=== PATIENT | male | born 1985 | race Hispanic/Latino ===

== ENCOUNTER 2017-01-14 21:45 | Emergency (ER) | payer BC ==
[2017-01-14 21:59] VITALS: BP 131/82; PULSE 65; RESP 16; TEMP 98.5; O2SAT 100
[2017-01-14 23:33] LABS: BARBITURATES, UR NEGATIVE (NEGATIVE); BENZODIAZEPINES, UR NEGATIVE (NEGATIVE); OPIATES, UR NEGATIVE (NEGATIVE); PHENCYCLIDINE, UR NEGATIVE (NEGATIVE)
--- NOTE | 2017-01-14 23:39 | ED PDOC ---
HPI: Back Time Seen by Provider: 01/14/17 22:11 Chief Complaint (Nursing): Chest Pain Chief Complaint (Provider): LEFT sided back pain History Per: Patient History/Exam Limitations: no limitations Current Symptoms Are (Timing): Still Present Quality Of Discomfort: Aching Additional Complaint(s): LEFT upper back pain for 2 years radiating to entire LEFT side of body (neck/ head/arm/chest/leg) Worsened over the last month, and especially severe today Took motrin with no relief Seen by PMD and outpatient workup so far: bloodwork", ekg, "nerve testing" in office which demonstrated LEFT arm weakness. He has MRI scheduled January 23 of T- spine. Intermittent numbness to LEFT hand RIGHT hand dominant No trauma Work requires extensive manual labor. Past Medical History Reviewed: Historical Data, Nursing Documentation, Vital Signs Vital Signs: Last Vital Signs Temp 98.5 F 01/14/17 21:55 Pulse 65 01/14/17 21:55 Resp 16 01/14/17 21:55 BP 131/82 01/14/17 21:55 Pulse Ox 100 01/14/17 21:55 - Medical History PMH: No Chronic Diseases - Surgical History Surgical History: No Surg Hx - Family History Family History: States: No Known Family Hx - Social History Current smoker - smoking cessation education provided: No Alcohol: Social (weekends) Drugs: Denies - Home Medications Home Medications: Ambulatory Orders Medication Instructions Recorded Cyclobenzaprine [Flexeril] 5 mg PO Q8 PRN #15 tab 01/14/17 Ibuprofen [Motrin Tab] 600 mg PO Q8 PRN #60 tab 01/14/17 traMADol [Ultram] 50 mg PO TID PRN #10 tab 01/14/17 - Allergies Allergies/Adverse Reactions: Allergies Allergy/AdvReac Type Severity Reaction Status Date / Time No Known Allergies Allergy Verified 01/14/17 21:55 Review of Systems ROS Statement: Except As Marked, All Systems Reviewed And Found Negative Cardiovascular: Positive for: Chest Pain Musculoskeletal: Positive for: Neck Pain, Shoulder Pain, Arm Pain, Back Pain, Hand Pain, Leg Pain Neurological: Positive for: Numbness, Headache. Negative for: Weakness Physical Exam - Reviewed Nursing Documentation Reviewed: Yes Vital Signs Reviewed: Yes - Physical Exam Appears: Positive for: Non-toxic, In Acute Distress Head Exam: Positive for: ATRAUMATIC, NORMOCEPHALIC Skin: Positive for: Warm, Dry Eye Exam: Positive for: EOMI, PERRL ENT: Negative for: Pharyngeal Erythema, Tonsillar Exudate Neck: Positive for: Painless ROM, Supple Cardiovascular/Chest: Positive for: Regular Rate, Rhythm, Chest Non Tender. Negative for: Murmur Respiratory: Positive for: Normal Breath Sounds. Negative for: Wheezing Gastrointestinal/Abdominal: Positive for: Soft. Negative for: Tenderness Back: Positive for: Normal Inspection, Muscle Spasm (LEFT thoracic paraspinal area w tenderness). Negative for: Vertebral Tenderness Extremity: Positive for: Normal ROM. Negative for: Deformity Lymphatic: Negative for: Adenopathy Neurologic/Psych: Positive for: Alert, care transition mgr II-XII (grossly normal), Oriented (x3 ), Cerebellar Tests (normal). Negative for: Motor/Sensory Deficits - ECG O2 Sat by Pulse Oximetry: 100 Disposition - Clinical Impression Clinical Impression: Muscle spasm - Disposition Referrals: Torey Moore DO [Primary Care Provider] - Disposition: Routine/Home Disposition Time: 23:30 Condition: STABLE Prescriptions: Cyclobenzaprine [Flexeril] 5 mg PO Q8 PRN #15 tab PRN Reason: muscle spasm Ibuprofen [Motrin Tab] 600 mg PO Q8 PRN #60 tab PRN Reason: Pain, Moderate (4-7) traMADol [Ultram] 50 mg PO TID PRN #10 tab PRN Reason: SEVERE PAIN ONLY Instructions: Thoracic Pain (ED), Muscle Spasm (ED) Forms: [facility] ED School/Work Excuse
--- NOTE | 2017-01-15 19:36 | CARD ---
APPROVED REPORT EKG Measurement Heart [id number] <Conclusion> Normal sinus rhythm Normal ECG
== END 2017-01-15 00:11 | disposition home or self-care (01) ==
LOC: H.ER 21:45
DX: M62.838 Other muscle spasm (principal)
CPT/HCPCS: 93005; 96372; 99283; G0480; J1885